=== PATIENT | female | born 1985 | race Two or more races ===

== ENCOUNTER 2016-12-18 04:57 | Emergency (ER) | payer OTHER ==
[~2016-12-18] VITALS: Ht 165.1 cm; Wt 96.1 kg
[~2016-12-18 04:57] MED LIST: ADVAIR 250/501 DISK IH; ALBUTEROL INHALER; BACLOFEN10 MG PO; BENTYL10 MG PO; CLEOCIN300 MG PO; FLEXERIL10 MG PO; FLINTSTONES1 TABLET PO; IBUPROFEN800 MG PO; MOBIC15 MG PO; MULTIVITAMIN1 EAC2 PO; Motrin PO; NAPROSYN500 MG PO; NO HOME MEDS; NOHOMEMEDS; NORCO 5/3251 TABLET PO; OMEPRAZOLE20 MG PO; PERCOCET 5/31 TABLET PO; TRAMADOL HCL50 MG PO; ULTRAM50 MG PO; VALIUM5 MG PO; VENTOLIN HFA18 GM IH; VIBRAMYCIN100 MG PO; Zantac PO; Zofran PO
[2016-12-18 05:42] LABS: HEMATOCRIT 38.5 % (36.0-46.0); MCH 31.5 PG (29.0-34.0); MCHC 33.2 G/DL (30.0-36.0); MCV 94.8 FL (83-99); PLATELET COUNT 276 K/uL (156-360); RBC DIS.WIDTH-SD 42.2 % (39-53); RED BLOOD COUNT 4.06 M/uL (3.80-5.20); WHITE BLOOD COUNT 13.5 K/uL (4.1-10.2)
[2016-12-18 05:45] LABS: CHLORIDE 108 mEq/L (99-109); SODIUM 137 mEq/L (136-147)
[2016-12-18 05:47] LABS: GLUCOSE 93 mg/dL (70-99)
[2016-12-18 05:49] LABS: ANION GAP 8 MEQ/L (2-14)
[2016-12-18 05:51] LABS: ALKALINE PHOSPHATASE 72 IU/L (3-129); GFR ESTIMATE (CALCULATED) > 59 mL/min/
[2016-12-18 05:52] LABS: UREA NITROGEN (BUN) 11 mg/dL (9-23)
[2016-12-18 05:54] LABS: LIPASE 14 U/L (1.0-51.0)
[2016-12-18 06:02] LABS: TOTAL BILIRUBIN 0.1 mg/dL (0.0-1.0)
[2016-12-18 06:03] LABS: QUANTITATIVE HCG < 4.0 MIU/ML
[2016-12-18 08:07] LABS: ADD MIUA? YES; BILIRUBIN NEGATIVE; BLOOD NEGATIVE; COLOR YELLOW ((YELLOW)); GLUCOSE (STRIP) NEGATIVE; KETONES NEGATIVE; LEUKOCYTES NEGATIVE; NITRITE NEGATIVE; PROTEIN (STRIP) 30; SPECIFIC GRAVITY 1.029 (1.000-1.030); UROBILINOGEN 0.2 MG/DL (0.2-1.0)
[2016-12-18 08:14] LABS: BACTERIA NONE SEEN /HPF; EPITHELIAL CELLS 1+ /HPF; MUCUS TRACE /LPF; RED BLOOD CELLS 0-5 /HPF (0-5); UCUL ADDED? NO; WHITE BLOOD CELLS 0-5 /HPF (0-5)
[2016-12-18] MEDS ORDERED: NAPROXEN500 MG PO (08:44)
[2016-12-18 09:19] VITALS: BP 103/55
[2016-12-20 13:46] LABS: CHLAMYDIA TRACHOMATIS NEGATIVE; NEISSERIA GONORRHOEAE NEGATIVE
== END 2016-12-18 09:20 | disposition home or self-care (01) ==
LOC: EME → EDBD 04:57 → EME 09:20
PROVIDERS: Emergency Medicine; Physician Assistant
DX: N83.202 Unspecified ovarian cyst, left side (principal); N89.8 Other specified noninflammatory disorders of vagina; R11.2 Nausea with vomiting, unspecified; F17.200 Nicotine dependence, unspecified, uncomplicated
CPT/HCPCS: 76856; 80053; 81003; 83690; 84702; 85027; 87210; 87491; 87591; 99281; 99284; J1885; J2405; J7030; J7120